=== PATIENT | female | born 1990 | race Caucasian/White ===

== ENCOUNTER 2018-09-23 11:41 | Inpatient (IN) | payer BC ==
[~2018-09-23] VITALS: Ht 165.1 cm; Wt 99.1 kg
[2018-09-23] VITALS (34 sets, daily range): BP systolic 105–150; BP diastolic 62–96; PULSE 56–101; TEMP 97.3–98.4
--- NOTE | 2018-09-23 12:00 | NUR ---
Pt sent over from the [facility] for induction for oligohydramnios. 40.4 weeks gestation, g3L0. Pt to [facility], explained. IV started to left hand x 1 attempt and blood drawn from IV site. LR started and infusing without difficulty. Assessment complete. GBS negative. Pt states baby is active, denies any contractions or leaking of fluid. Consents signed. Pt very quiet. at bedside. Pt had SVE in office today, /-2. FHR reactive, 1245:Pitocin started at 2mu.
[2018-09-23] MEDS ORDERED: PRENATAL PO (12:19)
[2018-09-23 12:33] LABS: BASO % 0.2 % (0.0-2.0); EOS # 0.1 (0.0-0.7); GRAN # 8.1 (1.4-6.5); GRAN % 75.5 % (42.2-75.2); HEMATOCRIT 37.1 % (37.0-47.0); HEMOGLOBIN 12.6 g/dl (12.5-16.0); LYMPH # 1.7 (1.2-3.4); LYMPH % 15.7 % (20.0-51.0); MEAN CELL VOLUME 91 fl (80.0-100.0); MEAN CORPUSCULAR HEMOGLOBIN 31 pg (27.0-31.0); MEAN CORPUSCULAR HGB CONC 34 g/dl (33.0-37.0); MEAN PLATELET VOLUME 11.5 fl (7.4-10.4); MONO # 0.7 (0.1-0.6); MONO % 6.9 % (1.7-9.3); PLATELET COUNT 229 K/mm3 (130-400); RED BLOOD COUNT 4.06 M/mm3 (4.10-5.30); REDCELL DISTRIBUTION WIDTH-CV 12.6 % (11.5-14.5)
--- NOTE | 2018-09-23 19:24 | NUR ---
1923- Pt sitting in the rocking chair. EFM intermittently tracing maternal HR. RN at the bedside. EFM adjusted. 1937- Pt sitting on the birthing ball. EFM intermittently tracing maternal HR as coorelates with SPO2 monitor. 1952- Pt reports feeling lots of pressure. SVE by this RN /+3. 1953- Dr. Vasquez notified. 2003- Dr. Vasquez at the bedside. Pt set up for delivery. 2007- of viable male . placed on mom's chest. Cords clamped and cut. Care of the given to nursery RN at the bedside. 2020- of placenta. Pitocin started at 333ml/hr per order and protocol. Fundus firm. Lochia WNL.
[2018-09-24 00:17] VITALS: BP 110/50; PULSE 76; TEMP 97.5
[2018-09-24 05:00] VITALS: BP 113/48; PULSE 86; TEMP 98.1
[2018-09-24 07:30] VITALS: BP 103/62; PULSE 77; TEMP 97.7
[2018-09-24 11:10] VITALS: BP 120/68; PULSE 80; TEMP 97.3
[2018-09-24 16:25] VITALS: BP 147/84; PULSE 67; TEMP 97.4
[2018-09-24 20:25] VITALS: BP 99/36; PULSE 86
[2018-09-25] MEDS ORDERED: IBU800 M1 PO (09:33)
[2018-09-25 09:34] VITALS: BP 123/73; PULSE 83; TEMP 97.4
--- NOTE | 2018-09-25 18:13 | NUR ---
Pt discharged home via private vehicle with in rear facing car seat secured by parents.
== END 2018-09-25 18:13 | disposition home or self-care (01) | DRG 807 ==
LOC: LDRO 11:41 → LDR 11:49 → OB 23:33
PROVIDERS: ADMIT Obstetrics & Gynecology
PROC: 10E0XZZ Delivery of Products of Conception, External Approach (ICD-10-PCS; principal; 2018-09-23)
PROC: 0KQM0ZZ Repair Perineum Muscle, Open Approach (ICD-10-PCS; 2018-09-23)
PROC: 3E033VJ Introduction of Other Hormone into Peripheral Vein, Percutaneous Approach (ICD-10-PCS; 2018-09-23)
PROC: 10907ZC Drainage of Amniotic Fluid, Therapeutic from Products of Conception, Via Natural or Artificial Opening (ICD-10-PCS; 2018-09-23)
DX: O41.03X0 Oligohydramnios, third trimester, not applicable or unspecified (principal); Z37.0 Single live birth; Z3A.40 40 weeks gestation of pregnancy; O76 Abnormality in fetal heart rate and rhythm complicating labor and delivery; O70.1 Second degree perineal laceration during delivery; Z23 Encounter for immunization; O48.0 Post-term pregnancy; O26.23 Pregnancy care for patient with recurrent pregnancy loss, third trimester
CPT/HCPCS: J2590; J2795; J7120

== ENCOUNTER 2020-04-28 14:08 | Outpatient (CLI) | payer BC ==
[~2020-04-28] VITALS: Ht 165.1 cm; Wt 100.9 kg
[~2020-04-28 14:08] MED LIST: IBU800 M1 PO; PRENATAL PO
--- NOTE | 2020-04-28 14:15 | NUR ---
Patient arrives ambulatory with spouse with reports of contractions every 5-6 minutes since 1100 today. Patient denies ROM or vaginal bleeding, reports normal movement. Patient changes into gown, EFM explained and placed. VS obtained. ADDIS per Salomon Hdz RN /-3. Patient repositioned WL and updated on plan of care. Assessment completed. See physician notification.
--- NOTE | 2020-04-28 14:45 | NUR ---
Category 1 FHR strip obtained, patient off EMF per request and order to ambulate.
[2020-04-28 15:00] VITALS: BP 127/75; PULSE 75; TEMP 98.2
[2020-04-28 16:00] VITALS: BP 123/76; PULSE 68
--- NOTE | 2020-04-28 16:20 | NUR ---
ADDIS per Salomon Hdz unchanged. Patient states she would like to go home. Preivous orders per Roles that if unchanged may be discharged. Labor precautions and kick counts reviewed. Patient denies questions and leaves ambulatory at 1630.
== END 2020-04-28 16:30 | disposition home or self-care (01) ==
LOC: LDRO 14:08
DX: O62.9 Abnormality of forces of labor, unspecified (principal); Z3A.40 40 weeks gestation of pregnancy

== ENCOUNTER 2020-04-28 22:22 | Inpatient (IN) | payer BC ==
[~2020-04-28] VITALS: Ht 165.1 cm; Wt 100.9 kg
--- NOTE | 2020-04-28 22:35 | NUR ---
G4L1. 40.0. Ambulatory to LDR 3 with spouse. Clean gown on. EFM and TOCO explained and applied. Pt states she was in here earlier this afternoon and was dilated to a 2. Pt reports contractions 3-4 mins apart since 2100 tonight. Denies leaking of fluids but reports minimal spotting from being checked earlier this afternoon. Reports good movement. Plan of care explained. 3: Roles at nurses station and reviews FHR strip and updated on pts status. See physican notification. Pt and updated on plan of care. Denies questions at this time.
[2020-04-28 23:00] VITALS: BP 132/67; PULSE 72; TEMP 97.2
[2020-04-28 23:30] VITALS: BP 117/58; PULSE 83
--- NOTE | 2020-04-28 23:40 | NUR ---
ADDIS /2. called and updated on pt status. Orders to watch pt for one more hour. 2343: Pt updated on new orders. Pt off monitor to void and use birthing ball.
[2020-04-29] VITALS (15 sets, daily range): BP systolic 99–141; BP diastolic 41–74; PULSE 61–91; TEMP 97.7–99.1
--- NOTE | 2020-04-29 00:35 | NUR ---
PT REPORTS FEELING MORE PRESSURE. SVE 5-6/90/-2. PLAN OF CARE EXPLAINED. 0038: CALLED AND UPDATED ON PTS STATUS. [facility]. [facility]: IV STARTED AND LABS OBTAINED VIA IV SITE. LR BOLUS INFUSING WITHOUT DIFFICULTIES.
[2020-04-29 01:15] LABS: BASO # 0.1 (0.0-0.2); BASO % 0.3 % (0.0-2.0); EOS % 0.2 % (0-4.0); GRAN # 14.5 (1.4-6.5); HEMOGLOBIN 12.2 g/dl (12.5-16.0); LYMPH # 1.5 (1.2-3.4); LYMPH % 8.8 % (20.0-51.0); MEAN CELL VOLUME 91 fl (80.0-100.0); MEAN CORPUSCULAR HEMOGLOBIN 31 pg (27.0-31.0); MEAN CORPUSCULAR HGB CONC 34 g/dl (33.0-37.0); MEAN PLATELET VOLUME 10.7 fl (7.4-10.4); MONO # 0.9 (0.1-0.6); PLATELET COUNT 254 K/mm3 (130-400); RED BLOOD COUNT 3.92 M/mm3 (4.10-5.30); REDCELL DISTRIBUTION WIDTH-CV 12.8 % (11.5-14.5)
[2020-04-29 01:17] LABS: HEMATOCRIT 35.5 % (37.0-47.0)
--- NOTE | 2020-04-29 01:50 | NUR ---
0150- Pt reports feeling more pressure. SVE done by this RN 8-/-2. 0203- Pt reports increasing pressure. Dr. Reza updated and coming to unit from call room. 0205- Dr. Reza at the bedside. Pt set up for delivery. 0210- Pt assisted back to bed from standing position. SVE per Dr. Reza /-1. 0233- Pt standing next to bed. Difficult tracing FHR. Frequent attempts to adjust monitor. 0240- Dr. Reza remains at the bedside. 0301- SVE per Dr. Reza /+1. 0304- of viable female . [place] placed on mom's abdomen. Cords clamped and cut. Care of the given to nursery RN at the bedside. 0309- of placenta. Pitocin started at 333ml/hr per order and protocol. Fundus firm per Dr. Reza and derick WNL.
--- NOTE | 2020-04-29 05:30 | NUR ---
Pt up to the bathroom with standby assist and without complications. Pt was able to void. Gloria-care done. Pt transferred to room 214 ambulatory. Oriented to room, bed and call light within reach. Plan of care reviewed.
--- NOTE | 2020-04-29 09:26 | NUR ---
Initial visit; Initial visit; Parents thanked [employer] for offering congratulations and God's blessings for the of their daughter. [employer] thanked family for choosing [facility].
[2020-04-30 07:15] VITALS: BP 110/53; PULSE 77; TEMP 97.9
[2020-04-30] MEDS ORDERED: IBU600 MG PO (08:15)
== END 2020-04-30 11:40 | disposition home or self-care (01) | DRG 807 ==
LOC: LDRO 22:22 → OB 04-29 00:54 → LDR 04-29 00:54 → OB 04-29 05:35
PROVIDERS: Obstetrics & Gynecology; ADMIT Obstetrics & Gynecology
PROC: 10E0XZZ Delivery of Products of Conception, External Approach (ICD-10-PCS; principal; 2020-04-29)
PROC: 0KQM0ZZ Repair Perineum Muscle, Open Approach (ICD-10-PCS; 2020-04-29)
PROC: 10907ZC Drainage of Amniotic Fluid, Therapeutic from Products of Conception, Via Natural or Artificial Opening (ICD-10-PCS; 2020-04-29)
DX: O48.0 Post-term pregnancy (principal); Z37.0 Single live birth; O70.1 Second degree perineal laceration during delivery; Z3A.40 40 weeks gestation of pregnancy; O77.0 Labor and delivery complicated by meconium in amniotic fluid; O62.9 Abnormality of forces of labor, unspecified
CPT/HCPCS: J2590; J7120